=== PATIENT | female | born 1985 | race Caucasian/White ===

== ENCOUNTER 2018-09-14 14:49 | Emergency (ER) | payer OTHER ==
[2018-09-14 14:56] VITALS: BMI 29.6
[2018-09-14] MEDS ORDERED: ACETAMINOPHEN 1000 MG/100 ML VIAL (NON FORMULARY) IVPB ONE (15:03)
[2018-09-14] MEDS ORDERED: ONDANSETRON 4 MG/2 ML VIAL IVPB ONE (15:03)
[2018-09-14] MEDS ORDERED: SODIUM CHLORIDE 1,000 ML IV STA ×2 (15:03→15:49)
--- NOTE | 2018-09-14 15:07 | PDOC ---
History of Present Illness - General Chief Complaint: Nausea/Vomiting Stated Complaint: NAUSEA, VOMITING, ABD PAIN Time Seen by Provider: 09/14/18 14:56 - History of Present Illness Initial Comments: 09/14/18 15:03 33 F with no PMH presents to ED with N+V+D. Pt states that she and her boyfriend ate tacos last night. Shortly afterwards, both began to feel ill. She states that she had a few episodes of loose stools. This morning, pt also vomited once and continued to have diarrhea. Pt endorses epigastric cramp-like pain while vomiting. Denies any lower abdominal pain. Denies vaginal discharge/ bleeding. Denies dysuria/flank pain. Pt states her boyfriend is having similar symptoms. Past History - Past Medical History Allergies/Adverse Reactions: Allergies Allergy/AdvReac Type Severity Reaction Status Date / Time lidocaine Allergy Verified 09/14/18 14:51 Home Medications: Ambulatory Orders Ondansetron [Zofran Odt -] 4 mg SL BID #14 od.tablet 09/14/18 COPD: No Other medical history: denies - Suicide/Smoking/Psychosocial Hx Smoking History: Never smoked Have you smoked in the past 12 months: No Information on smoking cessation initiated: No Hx Alcohol Use: No Drug/Substance Use Hx: No Review of Systems - Review of Systems Comments:: 09/14/18 15:05 GENERAL/CONSTITUTIONAL: No fever or chills. No weakness. HEAD, EYES, EARS, NOSE AND THROAT: No change in vision. No ear pain or discharge. No sore throat. CARDIOVASCULAR: No chest pain, no shortness of breath, no loss of consciousness RESPIRATORY: No cough, wheezing, or hemoptysis. GASTROINTESTINAL: + nausea, vomiting, and diarrhea, no constipation. GENITOURINARY: No dysuria, frequency, or change in urination. MUSCULOSKELETAL: No joint or muscle swelling or pain. No neck or back pain. SKIN: No rash NEUROLOGIC: No vertigo, no change in strength/sensation. ENDOCRINE: No increased thirst. No abnormal weight change. HEMATOLOGIC/LYMPHATIC: No anemia, easy bleeding, or history of blood clots. ALLERGIC/IMMUNOLOGIC: No hives or skin allergy. *Physical Exam - Vital Signs Last Vital Signs Temp Pulse Resp BP Pulse Ox 100.1 F H 121 H 20 112/78 96 09/14/18 14:49 05/24/19 14:49 09/14/18 14:49 09/14/18 14:49 09/14/18 14:49 - Physical Exam Comments: 09/14/18 15:05 GENERAL: Awake, alert, and fully oriented, in no acute distress. HEAD: No signs of trauma EYES: PERRLA, EOMI, sclera anicteric, conjunctiva clear ENT: Auricles normal inspection, hearing grossly normal, nares patent, oropharynx clear without exudates. Moist mucosa NECK: Nontender, no stepoffs, Normal ROM, supple, no lymphadenopathy, JVD, or masses LUNGS: Breath sounds equal, clear to auscultation bilaterally. No wheezes, and no crackles HEART: Regular rate and rhythm, normal S1 and S2, no murmurs, rubs or gallops ABDOMEN: + mild epigastric TTP, normoactive bowel sounds. No guarding, no rebound. No masses EXTREMITIES: Normal range of motion, no edema. No clubbing or cyanosis. No cords, erythema, or tenderness NEUROLOGICAL: Cranial nerves II through XII intact. 5/5 strength and sensation in all extremities, Normal speech, normal gait, normal cerebellar function SKIN: Warm, Dry, normal turgor, no rashes or lesions noted. ED Treatment Course - LABORATORY CBC & Chemistry Diagram: 09/14/18 13:10 09/14/18 15:30 Medical Decision Making - Medical Decision Making 09/14/18 15:06 33 F with N+V+D. Also found to be febrile in ED. Suspect viral gastroenteritis. Pt with epigastric tenderness but otherwise benign exam. - Labs, lipase - IVF, tylenol, zofran 09/14/18 17:02 Labs wnl Pt tolerating PO Repeat abdominal exam benign Repeat vitals BP 108/59, HR 98, T 100.0 Pt is well appearing, with normal vitals. Clinically stable for DC at this time. I discussed the physical exam findings, ancillary test results and final diagnoses with the patient. I answered all of the patient's questions. The patient was satisfied with the care received and felt comfortable with the discharge plan and treatment plan. The patient agrees to follow up with the primary care physician within 24-72 hours. *DC/Admit/Observation/Transfer Diagnosis at time of Disposition: Gastroenteritis - Discharge Dispostion Disposition: HOME Condition at time of disposition: Stable - Prescriptions Prescriptions: Ondansetron [Zofran Odt -] 4 mg SL BID #14 od.tablet - Referrals - Patient Instructions Printed Discharge Instructions: DI for Viral Gastroenteritis -- Adult Additional Instructions: Drink plenty of fluids to stay hydrated. Eat a gentle diet until you are completely better. If you continue to have diarrhea or fevers for more than 48 hours, or if you have worsening abdominal pain, vomiting, or any other concerning symptoms, return to the ER immediately. Otherwise, follow up with your primary doctor within 1 week. - Post Discharge Activity Forms/Work/School Notes: Back to Work - Attestations Physician Attestion: 09/14/18 17:06 I, Dr. Kaleb Sharma MD, attest that this document has been prepared under my direction and personally reviewed by me in its entirety. I further attest, that it accurately reflects all work, treatment, procedures and medical decision -making performed by me.
[2018-09-14] MEDS ORDERED: ACETAMINOPHEN INJECTION 100 ML IVPB ONE (15:17)
[2018-09-14] MEDS ORDERED: ONDANSETRON 4 MG/2 ML VIAL ONE (15:17)
[2018-09-14 15:38] LABS: BASO % 0.6 % (0-2.0); HEMOGLOBIN 16.1 GM/dl (10.7-15.3); LYMPH % 6.1 % (8-40); MCH 32.1 pg (25.7-33.7); MCHC 33.5 g/dl (32.0-36.0); MEAN CELL VOLUME 95.8 fl (80-96); MEAN PLT VOLUME 8.3 fl (7.5-11.1); MONO % 3.4 % (3.8-10.2); NEUT % 89.9 % (42.8-82.8); PLATELET COUNT 388 K/MM3 (134-434); RBC 5.01 M/mm3 (3.60-5.2); RDW 11.5 % (11.6-15.6); WHITE BLOOD COUNT 7.2 K/mm3 (4.0-10.8)
[2018-09-14] MEDS ORDERED: FAMOTIDINE 20 MG/50 ML IVPB 20 MG/50 ML MG IVPB ONE ×2 (15:53→17:17)
[2018-09-14 16:14] LABS: ALBUMIN 3.9 g/dl (3.4-5.0); BILIRUBIN,TOTAL 1.1 mg/dl (0.2-1); CALCIUM 8.6 mg/dl (8.5-10); CREATININE 0.7 mg/dl (0.55-1.3); POTASSIUM 3.7 mmol/L (3.5-5.1); TOT PROT 6.7 g/dl (6.4-8.2)
[2018-09-14 17:08] LABS: HCG,QUALITATIVE URINE Negative
[2018-09-14 17:32] VITALS: BP 108/59; PULSE 101; TEMP 100
== END 2018-09-14 17:30 | disposition home or self-care (01) ==
LOC: FER 14:49
PROC: 3E033NZ Introduction of Analgesics, Hypnotics, Sedatives into Peripheral Vein, Percutaneous Approach (ICD-10-PCS; principal; 2018-09-14)
PROC: 3E033GC Introduction of Other Therapeutic Substance into Peripheral Vein, Percutaneous Approach (ICD-10-PCS; 2018-09-14)
PROC: 3E0337Z Introduction of Electrolytic and Water Balance Substance into Peripheral Vein, Percutaneous Approach (ICD-10-PCS; 2018-09-14)
DX: K52.9 Noninfective gastroenteritis and colitis, unspecified (principal)
CPT/HCPCS: 36415; 80053; 81003; 83690; 84703; 85025; 99284-25; J0131; J7030

== ENCOUNTER 2022-02-15 17:00 | Emergency (ER) | payer BC, OTHER ==
[2022-02-15 17:18] VITALS: BP 139/91; PULSE 98; RESP 18; TEMP 97.1; BMI 29.8
[2022-02-15] MEDS ORDERED: predniSONE 20 MG TABLET (UD) PO ONE (17:40)
[2022-02-15] MEDS ORDERED: ALBUTEROL SO4 2.5/IPRATROPIUM 0.5 INH SOL 3 ML VIAL.NEB. NEB ONE ×2 (17:41→17:44)
[2022-02-15] MEDS ORDERED: predniSONE 20 MG TABLET (UD) ONE (17:44)
[2022-02-15] MEDS ORDERED: predniSONE 10 MG TABLET (UD) ONE (17:44)
== END 2022-02-15 18:25 | disposition home or self-care (01) ==
LOC: FER 17:00
PROC: 3E0F7GC Introduction of Other Therapeutic Substance into Respiratory Tract, Via Natural or Artificial Opening (ICD-10-PCS; principal; 2022-02-15)
DX: B97.4 Respiratory syncytial virus as the cause of diseases classified elsewhere (principal)
CPT/HCPCS: 99283-25

== ENCOUNTER 2022-03-14 12:04 | Emergency (ER) | payer BC ==
[2022-03-14] MEDS ORDERED: SODIUM CHLORIDE 1,000 ML IV STA (12:11)
[2022-03-14] MEDS ORDERED: ACETAMINOPHEN 1000 MG/100 ML BAG IVPB ONE (12:11)
[2022-03-14] MEDS ORDERED: ONDANSETRON 4 MG/2 ML VIAL IVPUSH ONE (12:11)
[2022-03-14] MEDS ORDERED: FAMOTIDINE 20 MG/50 ML IVPB 20 MG/50 ML MG IVPB ONE ×2 (12:11→12:59)
[2022-03-14 12:16] VITALS: TEMP 97.8; BMI 29.8
[2022-03-14] MEDS ORDERED: ACETAMINOPHEN INJECTION 100 ML IVPB ONE (12:20)
[2022-03-14] MEDS ORDERED: ONDANSETRON 4 MG/2 ML VIAL ONE (12:20)
[2022-03-14 12:51] LABS: HEMATOCRIT 46.1 % (32.4-45.2); HEMOGLOBIN 15.9 G/dL (10.7-15.3); MCHC 34.5 g/dl (32.0-36.0); MEAN CELL VOLUME 92.7 fl (80-96); MEAN PLT VOLUME 7.5 fl (7.5-11.1); PLATELET COUNT 312.6 10^3/uL (134-434); RBC 4.97 10^6/uL (3.60-5.2); RDW 13.5 % (11.6-15.6); WHITE BLOOD COUNT 8.3 10^3/uL (4.0-10.8)
[2022-03-14 12:58] LABS: ALBUMIN 3.9 g/dl (3.4-5.0); BILIRUBIN,TOTAL 1.2 mg/dl (0.2-1); CALCIUM 8.5 mg/dl (8.5-10); CREATININE 0.8 mg/dl (0.55-1.3)
[2022-03-14 13:00] LABS: PLATELET ESTIMATE ADEQUATE
[2022-03-14 13:40] VITALS: BP 113/63; PULSE 78; RESP 18
== END 2022-03-14 14:00 | disposition home or self-care (01) ==
LOC: FER 12:04
PROC: 3E0333Z Introduction of Anti-inflammatory into Peripheral Vein, Percutaneous Approach (ICD-10-PCS; principal; 2022-03-14)
PROC: 3E033GC Introduction of Other Therapeutic Substance into Peripheral Vein, Percutaneous Approach (ICD-10-PCS; 2022-03-14)
PROC: 3E033GC Introduction of Other Therapeutic Substance into Peripheral Vein, Percutaneous Approach (ICD-10-PCS; 2022-03-14)
PROC: 3E0337Z Introduction of Electrolytic and Water Balance Substance into Peripheral Vein, Percutaneous Approach (ICD-10-PCS; 2022-03-14)
DX: R11.2 Nausea with vomiting, unspecified (principal); R19.7 Diarrhea, unspecified
CPT/HCPCS: 36415; 80053; 83690; 84703; 85025; 99284-25

== ENCOUNTER 2022-10-31 14:10 | Emergency (ER) | payer BC ==
[2022-10-31 14:23] VITALS: BP 114/68; PULSE 84; RESP 15; BMI 31.4
[2022-10-31] MEDS ORDERED: SODIUM CHLORIDE 1,000 ML IV STA (14:32)
[2022-10-31 15:40] LABS: HEMOGLOBIN 14.4 G/dL (10.7-15.3); MCH 32.7 pg (25.7-33.7); MEAN CELL VOLUME 93.5 fl (80-96); MEAN PLT VOLUME 7.5 fl (7.5-11.1); PLATELET COUNT 352.7 10^3/uL (134-434); RBC 4.39 10^6/uL (3.60-5.2); RDW 12.7 % (11.6-15.6); WHITE BLOOD COUNT 7.5 10^3/uL (4.0-10.8)
[2022-10-31 15:51] LABS: ALBUMIN 4.2 g/dl (3.4-5.0); BILIRUBIN,TOTAL 0.9 mg/dl (0.2-1); BLOOD UREA NITROGEN 8.4 mg/dl (7-18); CALCIUM 8.8 mg/dl (8.5-10.1); CREATININE 0.7 mg/dl (0.6-1.3); POTASSIUM 3.7 mmol/L (3.5-5.1); SGOT/AST 21.7 U/L (15-37); SGPT/ALT 21.2 U/L (7-52); TOT PROT 6.7 g/dl (6.4-8.2)
[2022-10-31 16:26] LABS: EPITHELIAL CELLS FEW /hpf
[2022-10-31 16:45] LABS: PLATELET ESTIMATE ADEQUATE
[2022-10-31 16:54] VITALS: TEMP 99
== END 2022-10-31 17:13 | disposition home or self-care (01) ==
LOC: FER 14:10
PROC: 3E0337Z Introduction of Electrolytic and Water Balance Substance into Peripheral Vein, Percutaneous Approach (ICD-10-PCS; principal; 2022-10-31)
DX: R19.7 Diarrhea, unspecified (principal); K52.9 Noninfective gastroenteritis and colitis, unspecified
CPT/HCPCS: 36415; 80053; 81003; 81015; 85027; 99284-25

== ENCOUNTER 2023-02-18 23:31 | Emergency (ER) | payer BC ==
[2023-02-18 23:38] VITALS: RESP 18; BMI 31.4
[2023-02-18 23:53] VITALS: BP 126/83; PULSE 74; TEMP 98.7
[2023-02-19] MEDS ORDERED: DIPHTH,PERTUSS(ACELL),TET 0.5 ML DISP.SYRIN IM ONE ×2 (00:26→00:28)
== END 2023-02-19 00:32 | disposition home or self-care (01) ==
LOC: FER 23:31
PROC: 3E0234Z Introduction of Serum, Toxoid and Vaccine into Muscle, Percutaneous Approach (ICD-10-PCS; principal; 2023-02-19)
DX: S80.811A Abrasion, right lower leg, initial encounter (principal); S00.501A Unspecified superficial injury of lip, initial encounter; W01.0XXA Fall on same level from slipping, tripping and stumbling without subsequent striking against object, initial encounter; Y92.093 Driveway of other non-institutional residence as the place of occurrence of the external cause
CPT/HCPCS: 90715; 99282-25

== ENCOUNTER 2023-04-16 10:16 | Emergency (ER) | payer BC ==
[2023-04-16 10:38] VITALS: BP 141/76; PULSE 96; RESP 18; TEMP 97.8; BMI 31.3
== END 2023-04-16 13:25 | disposition home or self-care (01) ==
LOC: FER 10:16
DX: M79.661 Pain in right lower leg (principal); R20.2 Paresthesia of skin; R22.41 Localized swelling, mass and lump, right lower limb
CPT/HCPCS: 93971-TC; 99284-25